=== PATIENT | female | born 1995 | race Caucasian/White ===

== ENCOUNTER 2016-11-30 01:02 | Emergency (ER) | payer BC ==
[2016-11-30 01:17] VITALS: BP 130/84; PULSE 71; TEMP 98.5; BMI 34.3
[2016-11-30] MEDS ORDERED: TOBRA 0.3%/DEXAMETH 0.1% OPHTHALMIC SUSP 2.5 ML BTL OU STA (01:34)
--- NOTE | 2016-11-30 01:34 | PDOC ---
History of Present Illness - General Chief Complaint: Eye Problem Stated Complaint: SOMETHING WRONG WITH EYES Time Seen by Provider: 11/30/16 01:22 History Source: Patient Exam Limitations: No Limitations - History of Present Illness Initial Comments: 11/30/16 01:35 This is a 21-year-old female comes in complaining of bilateral burning and crusting of her eyes. Patient said a coworker had conjunctivitis and she got up from a weaker. Patient otherwise denies any complaints. PAST MEDICAL HISTORY: no significant history PAST SURGICAL HISTORY: no significant history FAMILY HISTORY: no pertinant history SOCIAL HISTORY: Pt lives with family and is employed. MEDICATIONS: reviewed ALLERGIES: As per nursing notes Review of Systems General: No fevers or chills, no weakness, no weight loss HEENT: Bilateral eye redness and crusting of the lids 1 day CardioVascular: No chest pain or shortness of breath Respiratory:No cough, or wheezing. Gastrointestinal: no nausea, vomitting, diarrhea or constipation, No rectal bleeding Genitourinary: No dysuria, hematuria, or frequency Musculoskeletal: No joint or muscle pain or swelling Neurologic: No headache, vertigo, dizziness or loss of consciousness Psychiatric: nor depression Skin: No rashes or easy bruising Endocrine: no increased thirst or abnormal weight change Allergic: no skin or latex allergy All other systems reviewed and normal GENERAL: The patient is awake, alert, and fully oriented, in no acute distress. HEAD: Normal with no signs of trauma. EYES: Pupils equal, round and reactive to light, extraocular movements intact, sclera anicteric, there is some injection of the conjunctiva bilateral with small amount of clear discharge there is no. Discharge. EXTREMITIES: Normal range of motion, no edema. NEUROLOGICAL: Normal speech, normal gait. PSYCH: Normal mood, normal affect. SKIN: Warm, Dry, normal turgor, no rashes or lesions noted. Assessment and plan: This is a 21-year-old female with bilateral conjunctivitis. Patient started on Topamax and discharged home. Past History - Past Medical History Allergies/Adverse Reactions: Allergies Allergy/AdvReac Type Severity Reaction Status Date / Time Penicillins Allergy Verified 11/30/16 01:12 Home Medications: Ambulatory Orders Fluoxetine HCl [Prozac -] 20 mg PO DAILY 11/30/16 Levothyroxine [Synthroid -] 112 mcg PO DAILY 11/30/16 Norethindrone-E.estradiol-Iron [Lo Loestrin Fe 1-10 Tablet] 1 tab PO DAILY 11/30 Asthma: Yes (ALLERGY INCUDED) Psychiatric Problems: Yes Thyroid Disease: Yes - Psycho/Social/Smoking Cessation Hx Anxiety: Yes Suicidal Ideation: No Smoking History: Current some day smoker Number of Cigarettes Smoked Daily: 1 Information on smoking cessation initiated: Yes 'Breaking Loose' booklet given: 11/30/16 *Physical Exam - Vital Signs Last Vital Signs Temp Pulse Resp BP Pulse Ox 98.5 F 71 16 130/84 95 11/30/16 01:15 11/30/16 01:15 11/30/16 01:15 11/30/16 01:15 11/30/16 01:15 *DC/Admit/Observation/Transfer Diagnosis at time of Disposition: Acute conjunctivitis of both eyes Qualifiers: Acute conjunctivitis type: unspecified Qualified Code(s): H10.33 - Unspecified acute conjunctivitis, bilateral - Discharge Dispostion Disposition: HOME Condition at time of disposition: Stable Admit: No - Patient Instructions Additional Instructions: 1 drop of the Tobradex in each eye 4 times a day while awake for one week. Return to the emergency department immediately with ANY new, persistent or worsening symptoms. Continue any medications as previously prescribed by your physician. You should follow up with your primary doctor as soon as possible regarding today's emergency department visit. . Please make sure your doctor reviews the results of your emergency evaluation. Thank you for coming to the Emergency Department today for your care. It was a pleasure to see you today. Please note that your evaluation is INCOMPLETE until you follow-up with your doctor.
[2016-11-30] MEDS ORDERED: TOBRA 0.3%/DEXAMETH 0.1% OPHTHALMIC SUSP 2.5 ML BTL ONE (01:35)
== END 2016-11-30 01:40 | disposition home or self-care (01) ==
LOC: FER 01:02
DX: H10.33 Unspecified acute conjunctivitis, bilateral (principal); F17.210 Nicotine dependence, cigarettes, uncomplicated; F41.0 Panic disorder [episodic paroxysmal anxiety]
CPT/HCPCS: 99281-25

== ENCOUNTER 2016-12-25 21:36 | Emergency (ER) | payer BC, OTHER ==
[2016-12-25 21:47] VITALS: PULSE 60; TEMP 98.8; BMI 34.1
[2016-12-25] MEDS ORDERED: SULFAMETHOXAZOLE/TRIMETHOPRIM 800MG/160MG D.S. TABLET PO ONE (21:56)
[2016-12-25] MEDS ORDERED: SULFAMETHOXAZOLE/TRIMETHOPRIM 800MG/160MG D.S. TABLET ONE (21:58)
[2016-12-25] MEDS ORDERED: IBUPROFEN 600 MG TABLET (FP) PO ONE ×2 (21:58→21:59)
--- NOTE | 2016-12-25 21:59 | PDOC ---
History of Present Illness - General Chief Complaint: Pain, Acute Stated Complaint: WORK INJURY NEEDLE THROUGH LEFT MIDDLE FINGER Time Seen by Provider: 12/25/16 21:49 History Source: Patient Exam Limitations: No Limitations (eyes G Bactrim DS 2 tablets here and needs a tetanus) - History of Present Illness Initial Comments: 12/25/16 22:04 This is a 21-year-old female who comes in complaining of a needle stick injury to her left middle finger. 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 Patient said that the needle had gone through the dogs nose prior to sticking in her finger. Patient states last tetanus was approximately 8 years ago. Patient is otherwise healthy. PAST MEDICAL HISTORY: no significant history PAST SURGICAL HISTORY: no significant history FAMILY HISTORY: no pertinant history SOCIAL HISTORY: Pt lives with family and is employed. MEDICATIONS: reviewed ALLERGIES: As per nursing notes Review of Systems General: No fevers or chills, no weakness, no weight loss HEENT: No change in vision. No sore throat,. No ear pain CardioVascular: No chest pain or shortness of breath Respiratory:No cough, or wheezing. Gastrointestinal: no nausea, vomitting, diarrhea or constipation, No rectal bleeding Genitourinary: No dysuria, hematuria, or frequency Musculoskeletal: Needle stick as per history of present illness Neurologic: No headache, vertigo, dizziness or loss of consciousness Psychiatric: nor depression Skin: No rashes or easy bruising Endocrine: no increased thirst or abnormal weight change Allergic: no skin or latex allergy All other systems reviewed and normal GENERAL: The patient is awake, alert, and fully oriented, in no acute distress. HEAD: Normal with no signs of trauma. EYES: Pupils equal, round and reactive to light, extraocular movements intact, sclera anicteric, conjunctiva clear. EXTREMITIES: Normal range of motion, no edema. left middle finger. There is a through and through puncture wound of the distal phalanx palmar surface with associated bruising and tenderness. There is no palpable foreign body. Patient said the needle did not break and the she thinks it did not hit the bone either. NEUROLOGICAL: Normal speech, normal gait. PSYCH: Normal mood, normal affect. SKIN: Warm, Dry, normal turgor, no rashes or lesions noted. X-ray finger no fracture or foreign body or acute pathology. 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 Patient started on Bactrim, had an x-ray that was negative and discharged will follow-up with her primary care doctor as needed Past History - Past Medical History Allergies/Adverse Reactions: Allergies Allergy/AdvReac Type Severity Reaction Status Date / Time Penicillins Allergy Verified 12/25/16 21:37 Home Medications: Ambulatory Orders Fluoxetine HCl [Prozac -] 20 mg PO DAILY 11/30/16 Levothyroxine [Synthroid -] 112 mcg PO DAILY 11/30/16 Norethindrone-E.estradiol-Iron [Lo Loestrin Fe 1-10 Tablet] 1 tab PO DAILY 11/30 Asthma: Yes (ALLERGY INCUDED) Psychiatric Problems: Yes (ANXIETY) Thyroid Disease: Yes - Psycho/Social/Smoking Cessation Hx Anxiety: Yes Suicidal Ideation: No Smoking History: Never smoked Have you smoked in the past 12 months: Yes Number of Cigarettes Smoked Daily: 1 Information on smoking cessation initiated: Yes 'Breaking Loose' booklet given: 11/30/16 Hx Alcohol Use: No Drug/Substance Use Hx: No Substance Use Type: None *Physical Exam - Vital Signs Last Vital Signs Temp Pulse Resp BP Pulse Ox 98.8 F 60 16 144/101 97 12/25/16 21:40 12/25/16 21:40 12/25/16 21:40 12/25/16 21:40 12/25/16 21:40 *DC/Admit/Observation/Transfer Diagnosis at time of Disposition: Needlestick injury of finger of left hand - Discharge Dispostion Disposition: HOME Condition at time of disposition: Stable Admit: No - Patient Instructions Additional Instructions: Take Bactrim 1 tablet twice a day for 7 days. Tylenol or Motrin as needed for pain. Return to the emergency department immediately with ANY new, persistent or worsening symptoms. Continue any medications as previously prescribed by your physician. You should follow up with your primary doctor as soon as possible regarding today's emergency department visit. . Please make sure your doctor reviews the results of your emergency evaluation. Thank you for coming to the Emergency Department today for your care. It was a pleasure to see you today. Please note that your evaluation is INCOMPLETE until you follow-up with your doctor.
[2016-12-25 22:27] VITALS: BP 129/91
== END 2016-12-25 22:27 | disposition home or self-care (01) ==
LOC: FER 21:36
DX: S69.92XA Unspecified injury of left wrist, hand and finger(s), initial encounter (principal); W46.0XXA Contact with hypodermic needle, initial encounter; Y93.89 Activity, other specified; Y92.89 Other specified places as the place of occurrence of the external cause; Y99.0 Civilian activity done for income or pay; F41.9 Anxiety disorder, unspecified; J45.909 Unspecified asthma, uncomplicated; E07.9 Disorder of thyroid, unspecified; Z72.0 Tobacco use
CPT/HCPCS: 73140-TC-LT; 99281-25